=== PATIENT | female | born 1980 | race Caucasian/White ===

== ENCOUNTER 2021-12-19 23:56 | Emergency (ER) | payer OTHER ==
[2021-12-20 01:43] LABS: HEMOGLOBIN 14.3 gm/dl (12.3-15.3); RED BLOOD COUNT 4.67 M/UL (4.00-5.10); WHITE BLOOD COUNT 8.1 K/UL (4.5-11.0)
[2021-12-20 01:57] LABS: BUN/CREATININE RATIO 13 (0-10)
== END 2021-12-20 03:06 | disposition home or self-care (01) ==
LOC: ER1 23:56
PROVIDERS: Family Medicine
DX: F11.20 Opioid dependence, uncomplicated (principal); Y93.B9 Activity, other involving muscle strengthening exercises
CPT/HCPCS: 80053; 80307; 85025; 99284; G0480

== ENCOUNTER 2021-12-22 11:09 | Emergency (ER) | payer OTHER ==
[2021-12-22 12:23] LABS: HEMOGLOBIN 16.4 gm/dl (12.3-15.3); RED BLOOD COUNT 5.27 M/UL (4.00-5.10); WHITE BLOOD COUNT 12.5 K/UL (4.5-11.0)
[2021-12-22 12:52] LABS: BUN/CREATININE RATIO 27 (0-10)
[2021-12-22] MEDS ORDERED: OMNICEF 300 MG300 MG PO (16:34)
[2021-12-22] MEDS ORDERED: ZOFRAN 4 MG TAB4 MG PO (16:34)
[2021-12-23 11:13] LABS: HBSAG SCREEN Negative (Negative); HEP A AB, IGM Negative (Negative); HEP B CORE AB, IGM Negative (Negative); HEP C VIRUS AB >11.0 (0.0-0.9)
== END 2021-12-22 21:38 | disposition home or self-care (01) ==
LOC: ER1 11:09
PROVIDERS: Physician Assistant
DX: N39.0 Urinary tract infection, site not specified (principal); R19.7 Diarrhea, unspecified; F11.10 Opioid abuse, uncomplicated
CPT/HCPCS: 70450; 71045; 80053; 80074; 80307; 81001; 82140; 82550; 82553; 82800; 83605; 83690; 84484; 84703; 85025; 85610; 87040; 87077; 87086; 87186; 93005; 96374; 96375; 99285; J0696; J2405; Q9967

== ENCOUNTER 2021-12-23 13:33 | Emergency (ER) | payer OTHER ==
[~2021-12-23 13:33] MED LIST: OMNICEF 300 MG300 MG PO; ZOFRAN 4 MG TAB4 MG PO
== END 2021-12-23 17:41 | disposition home or self-care (01) ==
LOC: ER1 13:33
DX: E86.0 Dehydration (principal); F11.13 Opioid abuse with withdrawal; F17.210 Nicotine dependence, cigarettes, uncomplicated
CPT/HCPCS: 93005; 99285